=== PATIENT | female | born 1965 | race African-American/Black ===

== ENCOUNTER 2016-09-01 06:50 | Emergency (ER) | payer SELFPAY ==
[~2016-09-01] VITALS: Ht 170.2 cm; Wt 86.3 kg
[~2016-09-01 06:50] MED LIST: BENADRYL25 MG PO; BENADRYL50 MG PO; BENTYL10 MG PO; COLACE100 MG PO; DOCUSATE SODIU100 MG PO; DOXYCYCLINE HY100 M3 PO; EPINEPHRIN0.15 MG/0. IM; FAMOTIDINE20 MG PO; FIORICET 50-301 EACH PO; MACROBID100 MG PO; MEDROL DOSEPAK4 MG PO; NAPROXEN500 MG PO; NIGHT TIME COL1 EAC1 PO; NOHOMEMEDS; PERCOCET 5/31 TABLET PO; PREDNISONE10 MG PO; PREDNISONE20 MG PO; PREDNISONE5 MG PO; PROTONIX40 MG PO; TYLENOL EXTRA500 MG PO; ULTRAM50 MG PO; XANAX0.25 MG PO
[2016-09-01 07:32] LABS: HEMATOCRIT 28.8 % (36.0-46.0); MCH 25.3 PG (29.0-34.0); MCHC 31.9 G/DL (30.0-36.0); MCV 79.3 FL (83-99); MEAN PLAT.VOLUME 9.2 uM^3 (9.5-12.4); PLATELET COUNT 401 K/uL (156-360); RBC DIS.WIDTH-CV 15.6 % (11.8-14.6); RBC DIS.WIDTH-SD 43.9 % (39-53); RED BLOOD COUNT 3.63 M/uL (3.80-5.20); WHITE BLOOD COUNT 13.3 K/uL (4.1-10.2)
[2016-09-01 08:17] LABS: ANION GAP 11 MEQ/L (2-14); CHLORIDE 101 MEQ/L (99-109); POTASSIUM 3.5 MEQ/L (3.7-5.4); SAMPLE HEMOLYSIS CHECK 0; SAMPLE ICTERIC CHECK 0; SAMPLE LIPEMIA CHECK 0; SODIUM 133 MEQ/L (136-147); TOTAL BILIRUBIN 0.7 MG/DL (0.0-1.0)
[2016-09-01 08:20] LABS: INTERNAL CONTROL VALID? YES; MONOSPOT (MONONUCLEOSIS SEROL) NEGATIVE
[2016-09-01 08:23] LABS: ALKALINE PHOSPHATASE 115 IU/L (3-129); GFR ESTIMATE (CALCULATED) > 59 mL/min/; GLUCOSE 143 mg/dL (70-99); UREA NITROGEN (BUN) 9 mg/dL (9-23)
[2016-09-01 08:40] LABS: C-REACTIVE PROTEIN 189.1 MG/L (0-10)
[2016-09-01 09:38] LABS: ADD MIUA? YES; BILIRUBIN NEGATIVE; BLOOD MODERATE; COLOR YELLOW ((YELLOW)); GLUCOSE (STRIP) NEGATIVE; KETONES NEGATIVE; LEUKOCYTES NEGATIVE; NITRITE NEGATIVE; PROTEIN (STRIP) NEGATIVE; SPECIFIC GRAVITY 1.005 (1.000-1.030); UROBILINOGEN 0.2 MG/DL (0.2-1.0)
[2016-09-01 09:47] LABS: BACTERIA RARE /HPF; EPITHELIAL CELLS 1+ /HPF; MUCUS NONE SEEN /LPF; RED BLOOD CELLS 0-5 /HPF (0-5); WHITE BLOOD CELLS 0-5 /HPF (0-5)
[2016-09-01 09:57] LABS: ABS NEUTROPHIL COUNT 10.76; ANISOCYTOSIS OCC; EOSINOPHIL ABS CT 0.13; MICROCYTOSIS RARE; PLAT.SUFFICIENCY INCREASED; USER ID CCL
[2016-09-01] MEDS ORDERED: PREDNISONE10 M1 PO (10:09)
[2016-09-01 10:33] LABS: LYME DISEASE SEROLOGY SCREEN NEGATIVE (NEGATIVE)
[2016-09-01 10:41] VITALS: BP 96/55
[2016-09-01 10:51] LABS: DELETE MACHINE DIFF? YES
== END 2016-09-01 14:00 | disposition home or self-care (01) ==
LOC: EME 06:50
PROVIDERS: Nurse Practitioner Family
DX: R50.9 Fever, unspecified (principal); M25.50 Pain in unspecified joint; J02.9 Acute pharyngitis, unspecified
CPT/HCPCS: 71020; 80053; 81003; 85025; 85027; 85651; 86140; 86308; 86618; 99281; 99285; J1885; J2270; J7030

== ENCOUNTER 2016-09-06 04:23 | Inpatient (IN) | payer SELFPAY ==
[~2016-09-06] VITALS: Ht 170.2 cm; Wt 92.5 kg
[~2016-09-06 04:23] MED LIST changes: +PREDNISONE10 M1 PO
[2016-09-06 04:48] LABS: HEMATOCRIT 27.9 % (36.0-46.0); MCH 25.3 PG (29.0-34.0); MCHC 32.6 G/DL (30.0-36.0); MCV 77.7 FL (83-99); RBC DIS.WIDTH-CV 15.9 % (11.8-14.6); RBC DIS.WIDTH-SD 43.3 % (39-53); RED BLOOD COUNT 3.59 M/uL (3.80-5.20); WHITE BLOOD COUNT 16.2 K/uL (4.1-10.2)
[2016-09-06 04:51] LABS: MEAN PLAT.VOLUME 8.8 uM^3 (9.5-12.4)
[2016-09-06 04:52] LABS: PLATELET COUNT 533 K/uL (156-360)
[2016-09-06 04:59] LABS: CHLORIDE 102 mEq/L (99-109); POTASSIUM 3.9 mEq/L (3.7-5.4); SODIUM 134 mEq/L (136-147)
[2016-09-06 05:01] LABS: GLUCOSE 186 mg/dL (70-99)
[2016-09-06 05:02] LABS: ANION GAP 13 MEQ/L (2-14)
[2016-09-06 05:05] LABS: GFR ESTIMATE (CALCULATED) > 59 mL/min/
[2016-09-06 05:06] LABS: UREA NITROGEN (BUN) 15 mg/dL (9-23)
[2016-09-06 05:09] LABS: TROP-I INTERPRETATION NEGATIVE; TROPONIN-I 0.04 ng/mL (0.0-0.30)
[2016-09-06 05:15] LABS: TOTAL BILIRUBIN 0.5 mg/dL (0.0-1.0)
[2016-09-06 05:16] LABS: ALKALINE PHOSPHATASE 202 IU/L (3-129)
[2016-09-06 05:19] LABS: DIRECT BILIRUBIN 0.3 mg/dL (0.0-0.3)
[2016-09-06 05:20] LABS: LIPASE 12 U/L (1.0-51.0)
[2016-09-06 05:57] LABS: INFLUENZA A VIRAL ANTIGEN NEGATIVE; INFLUENZA B VIRAL ANTIGEN NEGATIVE
[2016-09-06] MEDS ORDERED: PREDNISONE10 M1 PO (07:25)
[2016-09-06 08:09] LABS: ADD MIUA? YES; BILIRUBIN NEGATIVE; BLOOD SMALL; COLOR YELLOW ((YELLOW)); GLUCOSE (STRIP) NEGATIVE; KETONES NEGATIVE; LEUKOCYTES NEGATIVE; NITRITE NEGATIVE; PROTEIN (STRIP) 30; SPECIFIC GRAVITY 1.012 (1.000-1.030)
[2016-09-06 08:21] LABS: BACTERIA NONE SEEN /HPF; EPITHELIAL CELLS 3+ /HPF; MUCUS TRACE /LPF; UCUL ADDED? NO; WHITE BLOOD CELLS 0-5 /HPF (0-5)
[2016-09-06 10:13] VITALS: BP 175/97
[2016-09-06 13:43] LABS: TROP-I INTERPRETATION NEGATIVE; TROPONIN-I 0.21 ng/mL (0.0-0.30)
[2016-09-06 16:38] VITALS: BP 148/87
[2016-09-06 20:00] VITALS: BP 106/58
[2016-09-06 21:28] LABS: TROP-I INTERPRETATION NEGATIVE; TROPONIN-I 0.14 ng/mL (0.0-0.30)
[2016-09-07] VITALS: BP 104/62
[2016-09-07 04:41] VITALS: BP 121/67
[2016-09-07 06:22] LABS: HEMATOCRIT 24.3 % (36.0-46.0); MCH 25.6 PG (29.0-34.0); MCHC 32.5 G/DL (30.0-36.0); MCV 78.6 FL (83-99); MEAN PLAT.VOLUME 9.4 uM^3 (9.5-12.4); PLATELET COUNT 381 K/uL (156-360); RBC DIS.WIDTH-CV 16.5 % (11.8-14.6); RBC DIS.WIDTH-SD 47.8 % (39-53); RED BLOOD COUNT 3.09 M/uL (3.80-5.20); WHITE BLOOD COUNT 15.4 K/uL (4.1-10.2)
[2016-09-07 06:52] LABS: ALKALINE PHOSPHATASE 122 IU/L (3-129); ANION GAP 9 MEQ/L (2-14); CHLORIDE 110 MEQ/L (99-109); GFR ESTIMATE (CALCULATED) > 59 mL/min/; GLUCOSE 164 mg/dL (70-99); POTASSIUM 4.4 MEQ/L (3.7-5.4); SAMPLE HEMOLYSIS CHECK 0; SAMPLE ICTERIC CHECK 0; SAMPLE LIPEMIA CHECK 0; SODIUM 138 MEQ/L (136-147); TOTAL BILIRUBIN 0.8 MG/DL (0.0-1.0); UREA NITROGEN (BUN) 12 mg/dL (9-23)
[2016-09-07 07:27] VITALS: BP 102/62
[2016-09-07 12:27] VITALS: BP 120/76
[2016-09-07 12:41] LABS: HEMATOCRIT 24.5 % (36.0-46.0); MCV 77.5 FL (83-99)
[2016-09-07 13:15] LABS: TROP-I INTERPRETATION NEGATIVE; TROPONIN-I 0.03 ng/mL (0.0-0.30)
[2016-09-07 16:02] VITALS: BP 119/68
[2016-09-07 18:38] LABS: ABSOLUTE RETICULOCYTE CT. 0.03 M/uL (0.02-0.08); IMM.RETIC FRACTION 4.1 % (3-19); RETIC HGB EQUIVALENT 18.8 (28-36)
[2016-09-07 19:04] LABS: IRON 43 MCG/DL (35-150)
[2016-09-07 19:17] LABS: LACTATE DEHYDROGENASE 400 IU/L (20-246)
[2016-09-07 19:22] LABS: FERRITIN > 1500 NG/ML (10-291)
[2016-09-07 20:00] VITALS: BP 135/76
[2016-09-08] VITALS (10 sets, daily range): BP systolic 117–138; BP diastolic 64–87
[2016-09-08 07:19] LABS: HEMATOCRIT 23.9 % (36.0-46.0); MCH 25.4 PG (29.0-34.0); MCHC 33.1 G/DL (30.0-36.0); MCV 76.8 FL (83-99); MEAN PLAT.VOLUME 9.5 uM^3 (9.5-12.4); PLATELET COUNT 448 K/uL (156-360); RBC DIS.WIDTH-CV 16.5 % (11.8-14.6); RBC DIS.WIDTH-SD 46.4 % (39-53); RED BLOOD COUNT 3.11 M/uL (3.80-5.20); WHITE BLOOD COUNT 19.5 K/uL (4.1-10.2)
[2016-09-08 07:48] LABS: ANION GAP 9 MEQ/L (2-14); CHLORIDE 106 MEQ/L (99-109); GFR ESTIMATE (CALCULATED) > 59 mL/min/; GLUCOSE 181 mg/dL (70-99); POTASSIUM 4.7 MEQ/L (3.7-5.4); SAMPLE HEMOLYSIS CHECK 0; SAMPLE ICTERIC CHECK 0; SAMPLE LIPEMIA CHECK 0; SODIUM 136 MEQ/L (136-147); UREA NITROGEN (BUN) 14 mg/dL (9-23)
[2016-09-08 14:47] LABS: INTERNAL CONTROL VALID? YES
[2016-09-08 15:13] LABS: C-REACTIVE PROTEIN 223.8 MG/L (0-10)
[2016-09-09 04:18] VITALS: BP 132/83
[2016-09-09 05:45] LABS: HEMATOCRIT 28.3 % (36.0-46.0); MCH 25.1 PG (29.0-34.0); MCHC 32.9 G/DL (30.0-36.0); MCV 76.5 FL (83-99); MEAN PLAT.VOLUME 9.4 uM^3 (9.5-12.4); PLATELET COUNT 485 K/uL (156-360); RBC DIS.WIDTH-CV 16.2 % (11.8-14.6); RBC DIS.WIDTH-SD 45.5 % (39-53); WHITE BLOOD COUNT 20.4 K/uL (4.1-10.2)
[2016-09-09 09:00] VITALS: BP 131/85
[2016-09-09] MEDS ORDERED: DEXAMETHASONE2 MG PO (11:15)
[2016-09-09] MEDS ORDERED: Colchicine,Colcrys PO (11:18)
[2016-09-09] MEDS ORDERED: PANTOPRAZOLE SO40 MG PO (11:18)
[2016-09-09] MEDS ORDERED: FOLIC ACID1 MG PO (11:18)
[2016-09-09 11:24] VITALS: BP 120/84
[2016-09-09] MEDS ORDERED: PERCOCET 5/31 TABLET PO (11:26)
[2016-09-10 19:03] LABS: HGBE Hematocrit 26.1 % (35.0-45.0); HGBE Hemoglobin 7.9 g/dL (11.7-15.5); HGBE MCH 24.7 pg (27.0-33.0); HGBE MCV 81.6 FL (80.0-100.0); HGBE RDW 18.6 % (11.0-15.0)
== END 2016-09-09 14:59 | disposition home or self-care (01) | DRG 545 ==
LOC: EME 04:23 → 5WEST 08:22 → EDOF 08:22 → 5WEST 09:51
PROVIDERS: Anesthesiology; Emergency Medicine; Internal Medicine; Physician Assistant Medical; Specialist
PROC: 30233N1 Transfusion of Nonautologous Red Blood Cells into Peripheral Vein, Percutaneous Approach (ICD-10-PCS; principal; 2016-09-08)
DX: M06.1 Adult-onset Still's disease (principal); R65.11 Systemic inflammatory response syndrome (SIRS) of non-infectious origin with acute organ dysfunction; I31.9 Disease of pericardium, unspecified; R07.89 Other chest pain; D64.9 Anemia, unspecified; R42 Dizziness and giddiness; R50.9 Fever, unspecified; R11.0 Nausea; R94.31 Abnormal electrocardiogram [ECG] [EKG]; D72.829 Elevated white blood cell count, unspecified; D47.3 Essential (hemorrhagic) thrombocythemia; R74.8 Abnormal levels of other serum enzymes; G89.29 Other chronic pain; M25.50 Pain in unspecified joint; E87.1 Hypo-osmolality and hyponatremia; I27.2 Other secondary pulmonary hypertension; K29.60 Other gastritis without bleeding; T38.0X5A Adverse effect of glucocorticoids and synthetic analogues, initial encounter
CPT/HCPCS: 71020; 71120; 71250; 76705; 80048; 80053; 80076; 81003; 81256 90; 82272; 82607; 82728; 82746; 83010 90; 83021 90; 83540; 83605; 83615; 83690; 84466; 84484; 85014; 85018; 85027; 85045; 86140; 86812 90; 86850; 86900; 86901; 86920; 87040; 87502; 87651 90; 93005; 93306; 99281; 99285; C9113; G0378; J1170; J1650; J1885; J1956; J2270; J2543; J2920; J2930; J3370; J7030; J7050; P9016

== ENCOUNTER 2016-09-10 21:43 | Inpatient (IN) | payer SELFPAY ==
[~2016-09-10] VITALS: Ht 170.2 cm; Wt 89.9 kg
[~2016-09-10 21:43] MED LIST changes: +Colchicine,Colcrys PO; +DEXAMETHASONE2 MG PO; +FOLIC ACID1 MG PO; +PANTOPRAZOLE SO40 MG PO
[2016-09-10 22:10] LABS: HEMATOCRIT 28.5 % (36.0-46.0); MCH 25.7 PG (29.0-34.0); MCHC 33.7 G/DL (30.0-36.0); MCV 76.2 FL (83-99); MEAN PLAT.VOLUME 8.9 uM^3 (9.5-12.4); PLATELET COUNT 475 K/uL (156-360); RBC DIS.WIDTH-CV 16.4 % (11.8-14.6); RBC DIS.WIDTH-SD 43.7 % (39-53); RED BLOOD COUNT 3.74 M/uL (3.80-5.20); WHITE BLOOD COUNT 21.9 K/uL (4.1-10.2)
[2016-09-10 22:20] LABS: CHLORIDE 102 mEq/L (99-109); POTASSIUM 3.6 mEq/L (3.7-5.4); SODIUM 134 mEq/L (136-147)
[2016-09-10 22:21] LABS: GLUCOSE 151 mg/dL (70-99)
[2016-09-10 22:23] LABS: ANION GAP 11 MEQ/L (2-14)
[2016-09-10 22:25] LABS: GFR ESTIMATE (CALCULATED) > 59 mL/min/
[2016-09-10 22:26] LABS: UREA NITROGEN (BUN) 14 mg/dL (9-23)
[2016-09-10 22:30] LABS: TROP-I INTERPRETATION NEGATIVE; TROPONIN-I < 0.01 ng/mL (0.0-0.30)
[2016-09-10 22:33] LABS: QUANTITATIVE HCG < 4.0 MIU/ML
[2016-09-10 22:41] LABS: D-DIMER ELISA > 4.00 mg/L FEU (< 0.57)
[2016-09-10 23:55] LABS: ADD MIUA? YES; BILIRUBIN NEGATIVE; BLOOD SMALL; COLOR AMBER ((YELLOW)); GLUCOSE (STRIP) NEGATIVE; KETONES NEGATIVE; LEUKOCYTES NEGATIVE; NITRITE NEGATIVE; PROTEIN (STRIP) 30; SPECIFIC GRAVITY 1.029 (1.000-1.030)
[2016-09-11 00:02] LABS: BACTERIA RARE /HPF; EPITHELIAL CELLS 2+ /HPF; MUCUS 4+ /LPF; UCUL ADDED? NO
[2016-09-11] MEDS ORDERED: TREXALL10 MG PO (01:45)
[2016-09-11] MEDS ORDERED: COLCRYS0.6 MG PO (01:46)
[2016-09-11 05:13] VITALS: BP 138/83
[2016-09-11 05:32] LABS: INFLUENZA A VIRAL ANTIGEN NEGATIVE; INFLUENZA B VIRAL ANTIGEN NEGATIVE
[2016-09-11 06:47] LABS: TROP-I INTERPRETATION NEGATIVE; TROPONIN-I < 0.01 ng/mL (0.0-0.30)
[2016-09-11 07:50] VITALS: BP 168/93
[2016-09-11 09:23] LABS: MCH 24.3 PG (29.0-34.0); MCHC 31.9 G/DL (30.0-36.0); MCV 76.2 FL (83-99); MEAN PLAT.VOLUME 9.5 uM^3 (9.5-12.4); PLATELET COUNT 455 K/uL (156-360); RBC DIS.WIDTH-CV 16.6 % (11.8-14.6); RBC DIS.WIDTH-SD 46.5 % (39-53); RED BLOOD COUNT 4.07 M/uL (3.80-5.20)
[2016-09-11 09:30] LABS: ANION GAP 9 MEQ/L (2-14); CHLORIDE 98 MEQ/L (99-109); GFR ESTIMATE (CALCULATED) > 59 mL/min/; GLUCOSE 151 mg/dL (70-99); POTASSIUM 3.6 MEQ/L (3.7-5.4); SAMPLE HEMOLYSIS CHECK 0; SAMPLE ICTERIC CHECK 0; SAMPLE LIPEMIA CHECK 0; SODIUM 131 MEQ/L (136-147); UREA NITROGEN (BUN) 11 mg/dL (9-23)
[2016-09-11 12:23] LABS: TROP-I INTERPRETATION NEGATIVE; TROPONIN-I 0.02 ng/mL (0.0-0.30)
[2016-09-11 12:30] VITALS: BP 173/106
[2016-09-11 15:02] LABS: BASE EXCESS 2.7 mEq/L (-3 to +3); BICARBONATE 25.7 mEq/L (22-26); CARBOXY HGB 2.3 % (0-5); METHEMOGLOBIN 1.8 % (0-1.5); PCO2 33 mm Hg (35-45); PO2 56 mm Hg (80-100)
[2016-09-11 15:03] LABS: COMMENTS - BLOOD GASES A+C+; DEVICE RA; SITE RR; TOTAL RESP RATE 20 resp/min
[2016-09-11 15:55] VITALS: BP 126/68
[2016-09-11 19:45] VITALS: BP 106/67
[2016-09-11 23:20] VITALS: BP 106/58
[2016-09-12 03:25] VITALS: BP 94/51
[2016-09-12 06:20] LABS: HEMATOCRIT 29.7 % (36.0-46.0); MCH 25.9 PG (29.0-34.0); MCV 76.2 FL (83-99); MEAN PLAT.VOLUME 9.8 uM^3 (9.5-12.4); RBC DIS.WIDTH-CV 16.5 % (11.8-14.6); RBC DIS.WIDTH-SD 45.6 % (39-53); WHITE BLOOD COUNT 24.6 K/uL (4.1-10.2)
[2016-09-12 06:46] LABS: ANION GAP 10 MEQ/L (2-14); CHLORIDE 96 MEQ/L (99-109); GFR ESTIMATE (CALCULATED) > 59 mL/min/; GLUCOSE 132 mg/dL (70-99); POTASSIUM 4.6 MEQ/L (3.7-5.4); SAMPLE HEMOLYSIS CHECK 0; SAMPLE ICTERIC CHECK 0; SAMPLE LIPEMIA CHECK 0; SODIUM 132 MEQ/L (136-147); UREA NITROGEN (BUN) 21 mg/dL (9-23)
[2016-09-12 06:50] LABS: EOSINOPHIL (%) 0 % (0-5); IMMATURE GRANULOCYTE (%) 1.2 % (0.0-0.7); IMMATURE GRANULOCYTE COUNT 0.3 K/uL; LYMPHOCYTE COUNT 1.4 K/uL (1.0-2.8); MONOCYTE (%) 2.8 % (3-12); MONOCYTE COUNT 0.7 K/uL (0-0.8); NEUTROPHIL (%) 90.2 % (45-76); NEUTROPHIL COUNT 22.2 K/uL (1.8-6.4)
[2016-09-12 07:59] LABS: ABS NEUTROPHIL COUNT 22.63; BAND NEUTROPHILS 4.5 % (0-8.0); LYMPHOCYTES 6.5 % (15.0-45.0); MACROCYTES OCC; PLAT.SUFFICIENCY INCREASED; PLATELET CLUMPS PRESENT; POLYCHROMASIA RARE; SEG.NEUTROPHILS 87.5 % (46.0-76.0)
[2016-09-12 08:03] VITALS: BP 89/54
[2016-09-12 12:00] VITALS: BP 104/62
[2016-09-12 15:48] VITALS: BP 112/63
[2016-09-12 20:00] VITALS: BP 92/54
[2016-09-13] VITALS: BP 100/53
[2016-09-13 04:00] VITALS: BP 92/52
[2016-09-13 08:03] VITALS: BP 98/61
[2016-09-13 10:04] LABS: INTERNAL CONTROL VALID? YES
[2016-09-13] MEDS ORDERED: HYDROMORPHONE HC4 MG PO (10:12)
[2016-09-13] MEDS ORDERED: DEXAMETHASONE2 MG PO (10:12)
[2016-09-13] MEDS ORDERED: ASPIRIN EC325 MG PO (10:12)
== END 2016-09-13 13:43 | disposition home or self-care (01) | DRG 546 ==
LOC: EME → EDBD 21:43 → EME 21:43 → EDOF 09-11 03:47 → 4SOUTH 09-11 03:47
PROVIDERS: Emergency Medicine; Hospitalist; Internal Medicine Pulmonary Disease
DX: M06.1 Adult-onset Still's disease (principal); R65.10 Systemic inflammatory response syndrome (SIRS) of non-infectious origin without acute organ dysfunction; I31.9 Disease of pericardium, unspecified; R82.71 Bacteriuria; D64.9 Anemia, unspecified; I27.2 Other secondary pulmonary hypertension; Z79.52 Long term (current) use of systemic steroids
CPT/HCPCS: 36600; 71020; 71275; 80048; 81003; 82803; 83605; 84484; 84702; 85025; 85027; 85379; 87040; 87070; 87205; 87449; 87502; 93005; 99281; 99285; J1170; J1644; J1885; J2270; J2405; J3010; J7030; J7512; J8540

== ENCOUNTER 2016-09-29 15:43 | Emergency (ER) | payer SELFPAY ==
[~2016-09-29] VITALS: Ht 170.2 cm; Wt 87.7 kg
[~2016-09-29 15:43] MED LIST changes: +ASPIRIN EC325 MG PO; +COLCRYS0.6 MG PO; +HYDROMORPHONE HC4 MG PO; +TREXALL10 MG PO
[2016-09-29 16:38] LABS: CHLORIDE 94 mEq/L (99-109); POTASSIUM 4.4 mEq/L (3.7-5.4); SODIUM 127 mEq/L (136-147)
[2016-09-29 16:41] LABS: GLUCOSE 101 mg/dL (70-99)
[2016-09-29 16:42] LABS: ANION GAP 13 MEQ/L (2-14); TOTAL BILIRUBIN 0.5 mg/dL (0.0-1.0)
[2016-09-29 16:44] LABS: ALKALINE PHOSPHATASE 229 IU/L (3-129); GFR ESTIMATE (CALCULATED) 48 mL/min/
[2016-09-29 16:45] LABS: HEMATOCRIT 34.2 % (36.0-46.0); MCH 23.8 PG (29.0-34.0); MCHC 31.9 G/DL (30.0-36.0); MCV 74.7 FL (83-99); MEAN PLAT.VOLUME 10.3 uM^3 (9.5-12.4); PLATELET COUNT 412 K/uL (156-360); RBC DIS.WIDTH-CV 17.4 % (11.8-14.6); RBC DIS.WIDTH-SD 46.5 % (39-53); RED BLOOD COUNT 4.58 M/uL (3.80-5.20); UREA NITROGEN (BUN) 55 mg/dL (9-23); WHITE BLOOD COUNT 13.6 K/uL (4.1-10.2)
[2016-09-29 16:46] LABS: DIRECT BILIRUBIN 0.3 mg/dL (0.0-0.3)
[2016-09-29 16:48] LABS: LIPASE 11 U/L (1.0-51.0)
[2016-09-29 16:53] LABS: QUANTITATIVE HCG < 4.0 MIU/ML
[2016-09-29 19:48] LABS: ADD MIUA? YES; BILIRUBIN NEGATIVE; BLOOD NEGATIVE; COLOR YELLOW ((YELLOW)); GLUCOSE (STRIP) NEGATIVE; KETONES NEGATIVE; LEUKOCYTES NEGATIVE; NITRITE NEGATIVE; PROTEIN (STRIP) 30; SPECIFIC GRAVITY 1.032 (1.000-1.030); UROBILINOGEN 0.2 MG/DL (0.2-1.0)
[2016-09-29 20:08] LABS: BACTERIA RARE /HPF; EPITHELIAL CELLS 1+ /HPF; MUCUS TRACE /LPF; UCUL ADDED? NO; UNCLASSIFIED CRYSTALS 1+ /HPF
[2016-09-29] MEDS ORDERED: ZOFRAN ODT4 MG PO (20:39)
[2016-09-29 21:08] VITALS: BP 113/81
== END 2016-09-29 21:09 | disposition home or self-care (01) ==
LOC: EME → EDBD 15:43 → EME 15:43
PROVIDERS: Emergency Medicine
DX: R11.10 Vomiting, unspecified (principal); R19.7 Diarrhea, unspecified; D72.829 Elevated white blood cell count, unspecified; D64.9 Anemia, unspecified; E87.1 Hypo-osmolality and hyponatremia; Z86.718 Personal history of other venous thrombosis and embolism
CPT/HCPCS: 74177; 80048; 80076; 81003; 83605; 83690; 84702; 85027; 87177; 87493; 87506; 93005; 99281; 99285; J1885; J2270; J2405; J7120

== ENCOUNTER 2016-12-03 20:01 | Inpatient (IN) | payer OTHER ==
[~2016-12-03] VITALS: Ht 297.2 cm; Wt 75.7 kg
[~2016-12-03 20:01] MED LIST changes: +ZOFRAN ODT4 MG PO
[2016-12-03 20:44] LABS: HEMATOCRIT 23.6 % (36.0-46.0); MCH 25.1 PG (29.0-34.0); MCHC 31.8 G/DL (30.0-36.0); MCV 78.9 FL (83-99); MEAN PLAT.VOLUME 9.4 uM^3 (9.5-12.4); NRBC (%) 0.2 /100 WBC (0-0); PLATELET COUNT 452 K/uL (156-360); RBC DIS.WIDTH-CV 20.1 % (11.8-14.6); RBC DIS.WIDTH-SD 56.9 % (39-53); RED BLOOD COUNT 2.99 M/uL (3.80-5.20); WHITE BLOOD COUNT 15.6 K/uL (4.1-10.2)
[2016-12-03 20:47] LABS: CHLORIDE 101 mEq/L (99-109); POTASSIUM 4.6 mEq/L (3.7-5.4); SODIUM 133 mEq/L (136-147)
[2016-12-03 20:49] LABS: GLUCOSE 115 mg/dL (70-99)
[2016-12-03 20:50] LABS: ANION GAP 11 MEQ/L (2-14)
[2016-12-03 20:52] LABS: GFR ESTIMATE (CALCULATED) > 59 mL/min/
[2016-12-03 20:53] LABS: UREA NITROGEN (BUN) 8 mg/dL (9-23)
[2016-12-03 20:58] LABS: TROP-I INTERPRETATION NEGATIVE; TROPONIN-I < 0.01 ng/mL (0.0-0.30)
[2016-12-03 20:59] LABS: INFLUENZA A VIRAL ANTIGEN NEGATIVE; INFLUENZA B VIRAL ANTIGEN NEGATIVE
[2016-12-03] MEDS ORDERED: ASPIRIN325 MG PO (21:58)
[2016-12-04] VITALS (16 sets, daily range): BP systolic 90–172; BP diastolic 7–64
[2016-12-04 01:39] LABS: HEMATOCRIT 20.5 % (36.0-46.0); MCV 79.8 FL (83-99)
[2016-12-04 01:44] LABS: TOTAL BILIRUBIN 0.3 mg/dL (0.0-1.0)
[2016-12-04 01:45] LABS: ALKALINE PHOSPHATASE 132 IU/L (3-129)
[2016-12-04 01:47] LABS: DIRECT BILIRUBIN 0.2 mg/dL (0.0-0.3)
[2016-12-04 02:41] LABS: LACTATE DEHYDROGENASE 430 IU/L (20-246)
[2016-12-04 03:11] LABS: C-REACTIVE PROTEIN 155.2 MG/L (0-10)
[2016-12-04 22:25] LABS: HEMATOCRIT 26.5 % (36.0-46.0); MCHC 32.8 G/DL (30.0-36.0); MCV 79.3 FL (83-99); NRBC (%) 0.1 /100 WBC (0-0); RBC DIS.WIDTH-CV 18.2 % (11.8-14.6); RBC DIS.WIDTH-SD 51.7 % (39-53); RED BLOOD COUNT 3.34 M/uL (3.80-5.20)
[2016-12-04 22:26] LABS: CHLORIDE 106 mEq/L (99-109); POTASSIUM 3.9 mEq/L (3.7-5.4); SODIUM 133 mEq/L (136-147)
[2016-12-04 22:29] LABS: GLUCOSE 84 mg/dL (70-99)
[2016-12-04 22:30] LABS: ANION GAP 9 MEQ/L (2-14)
[2016-12-04 22:32] LABS: ALKALINE PHOSPHATASE 122 IU/L (3-129); GFR ESTIMATE (CALCULATED) > 59 mL/min/; TOTAL BILIRUBIN 0.7 mg/dL (0.0-1.0)
[2016-12-04 22:33] LABS: UREA NITROGEN (BUN) 9 mg/dL (9-23)
[2016-12-04 22:35] LABS: CREATINE KINASE 21 IU/L (1-294); TOTAL CK 21 IU/L (1-294)
[2016-12-04 22:39] LABS: TROP-I INTERPRETATION NEGATIVE; TROPONIN-I < 0.01 ng/mL (0.0-0.30)
[2016-12-04 22:41] LABS: CK-MB < 0.4 ng/mL (0.0-4.9)
[2016-12-04 23:10] LABS: ATYPICAL LYMPHOCYTE 0.9 %; BAND NEUTROPHILS 13.9 % (0-8.0); EOSINOPHIL ABS CT 0.5; EOSINOPHILS 2.6 % (0-5.0); INSTRUMENT ABS NEUTROPHIL CT 18.1 K/uL; MEAN PLAT.VOLUME 9.3 uM^3 (9.5-12.4); NUCLEATED RBC'S 0.9; PLATELET COUNT 290 K/uL (156-360); SEG.NEUTROPHILS 80.9 % (46.0-76.0); WHITE BLOOD COUNT 21.1 K/uL (4.1-10.2)
[2016-12-05 04:00] VITALS: BP 110/69
[2016-12-05 07:41] LABS: INTERNAL CONTROL VALID? YES
[2016-12-05 09:00] VITALS: BP 110/57
[2016-12-05 12:00] VITALS: BP 114/68
[2016-12-05 12:47] LABS: HEMATOCRIT 26.6 % (36.0-46.0); MCH 26.2 PG (29.0-34.0); MCHC 32.3 G/DL (30.0-36.0); MCV 81.1 FL (83-99); MEAN PLAT.VOLUME 9.8 uM^3 (9.5-12.4); PLATELET COUNT 309 K/uL (156-360); RBC DIS.WIDTH-CV 18.6 % (11.8-14.6); RBC DIS.WIDTH-SD 54.7 % (39-53); RED BLOOD COUNT 3.28 M/uL (3.80-5.20); WHITE BLOOD COUNT 17.8 K/uL (4.1-10.2)
[2016-12-05 13:13] LABS: EOSINOPHIL COUNT 1.2 K/uL (0-0.3); IMMATURE GRANULOCYTE (%) 0.6 % (0.0-0.7); IMMATURE GRANULOCYTE COUNT 0.1 K/uL; INSTRUMENT ABS NEUTROPHIL CT 14.9 K/uL; LYMPHOCYTE COUNT 1.2 K/uL (1.0-2.8); MONOCYTE (%) 1.5 % (3-12); MONOCYTE COUNT 0.3 K/uL (0-0.8); NEUTROPHIL (%) 83.9 % (45-76); NEUTROPHIL COUNT 14.9 K/uL (1.8-6.4)
[2016-12-05 13:16] LABS: ANION GAP 9 MEQ/L (2-14); CHLORIDE 102 MEQ/L (99-109); GFR ESTIMATE (CALCULATED) > 59 mL/min/; GLUCOSE 84 mg/dL (70-99); POTASSIUM 4.1 MEQ/L (3.7-5.4); SAMPLE HEMOLYSIS CHECK 0; SAMPLE ICTERIC CHECK 0; SAMPLE LIPEMIA CHECK 0; SODIUM 133 MEQ/L (136-147); UREA NITROGEN (BUN) 9 mg/dL (9-23)
[2016-12-05 16:00] VITALS: BP 114/68
[2016-12-05 17:13] LABS: HEMATOCRIT 26.2 % (36.0-46.0); MCV 80.1 FL (83-99)
[2016-12-05 17:50] LABS: IRON 15 MCG/DL (35-150)
[2016-12-05 18:10] LABS: FERRITIN > 1500 NG/ML (10-291)
[2016-12-05 19:44] VITALS: BP 123/73
[2016-12-06] VITALS (9 sets, daily range): BP systolic 115–142; BP diastolic 67–92
[2016-12-06 06:10] LABS: HEMATOCRIT 23.3 % (36.0-46.0); IMM.RETIC FRACTION 20.6 % (3-19); MCH 26.4 PG (29.0-34.0); MCHC 33.5 G/DL (30.0-36.0); MEAN PLAT.VOLUME 9.6 uM^3 (9.5-12.4); PLATELET COUNT 308 K/uL (156-360); RBC DIS.WIDTH-CV 18.5 % (11.8-14.6); RBC DIS.WIDTH-SD 52.9 % (39-53); RED BLOOD COUNT 2.95 M/uL (3.80-5.20); RETIC HGB EQUIVALENT 26.1 (28-36); RETICULOCYTE COUNT 1.7 % (0.5-1.8); WHITE BLOOD COUNT 13.1 K/uL (4.1-10.2)
[2016-12-06 06:44] LABS: ANION GAP 7 MEQ/L (2-14); CHLORIDE 105 MEQ/L (99-109); GFR ESTIMATE (CALCULATED) > 59 mL/min/; GLUCOSE 105 mg/dL (70-99); IRON 27 MCG/DL (35-150); MAGNESIUM 1.9 mg/dl (1.3-2.7); POTASSIUM 3.9 MEQ/L (3.7-5.4); SAMPLE HEMOLYSIS CHECK 0; SAMPLE ICTERIC CHECK 0; SAMPLE LIPEMIA CHECK 0; SODIUM 134 MEQ/L (136-147); UREA NITROGEN (BUN) 10 mg/dL (9-23)
[2016-12-06 10:54] LABS: ANTI-NUCLEAR AB SCRN/RFLX(ANA) REACTIVE (NONREACTIVE)
[2016-12-06 10:59] LABS: CENTROMERE ANTIBODY 12 U/mL (0-99); HISTONE ANTIBODY 17 U/mL (0-99); JO-1 ANTIBODY 9 U/mL (0-99); SCL-70 (SCLERODERMA) ANTIBODY 174 U/mL (0-99); SM (SMITH) ANTIBODY 11 U/mL (0-99); SS-A (SJOGREN'S) ANTIBODY 3 U/mL (0-99); SS-B (SJOGREN'S) ANTIBODY 13 U/mL (0-99)
[2016-12-06 13:55] LABS: POC NON-PRINT COM 1 ND
[2016-12-07] VITALS (7 sets, daily range): BP systolic 133–148; BP diastolic 78–95
[2016-12-07 07:31] LABS: HEMATOCRIT 27.4 % (36.0-46.0); MCH 27.1 PG (29.0-34.0); MCHC 33.6 G/DL (30.0-36.0); MCV 80.6 FL (83-99); MEAN PLAT.VOLUME 9.7 uM^3 (9.5-12.4); NRBC (%) 0.1 /100 WBC (0-0); PLATELET COUNT 346 K/uL (156-360); RBC DIS.WIDTH-CV 18.1 % (11.8-14.6); RBC DIS.WIDTH-SD 52.5 % (39-53); WHITE BLOOD COUNT 14.9 K/uL (4.1-10.2)
[2016-12-07 07:58] LABS: ANION GAP 11 MEQ/L (2-14); CHLORIDE 104 MEQ/L (99-109); GFR ESTIMATE (CALCULATED) > 59 mL/min/; GLUCOSE 79 mg/dL (70-99); MAGNESIUM 1.8 mg/dl (1.3-2.7); POTASSIUM 3.7 MEQ/L (3.7-5.4); SAMPLE HEMOLYSIS CHECK 0; SAMPLE ICTERIC CHECK 0; SAMPLE LIPEMIA CHECK 0; SODIUM 136 MEQ/L (136-147); UREA NITROGEN (BUN) 10 mg/dL (9-23)
[2016-12-07] MEDS ORDERED: Tears Naturale II,Ar BOTH EYES (12:00)
[2016-12-07 18:42] LABS: METH RESISTANT S AUREUS PCR NEGATIVE (NEGATIVE)
[2016-12-07 18:51] LABS: PROBE CHECK PASS; SPECIMEN PROCESSING CONTROL PASS
[2016-12-08 04:42] VITALS: BP 135/76
[2016-12-08 08:13] LABS: HEMATOCRIT 29.7 % (36.0-46.0); MCH 26.3 PG (29.0-34.0); MCHC 32.7 G/DL (30.0-36.0); MCV 80.5 FL (83-99); MEAN PLAT.VOLUME 9.3 uM^3 (9.5-12.4); NRBC (%) 0.2 /100 WBC (0-0); PLATELET COUNT 373 K/uL (156-360); RBC DIS.WIDTH-CV 18.4 % (11.8-14.6); RBC DIS.WIDTH-SD 54.1 % (39-53); RED BLOOD COUNT 3.69 M/uL (3.80-5.20); WHITE BLOOD COUNT 12.6 K/uL (4.1-10.2)
[2016-12-08 08:36] LABS: ALKALINE PHOSPHATASE 103 IU/L (3-129); ANION GAP 10 MEQ/L (2-14); CHLORIDE 103 MEQ/L (99-109); GFR ESTIMATE (CALCULATED) > 59 mL/min/; GLUCOSE 86 mg/dL (70-99); POTASSIUM 4.4 MEQ/L (3.7-5.4); SAMPLE HEMOLYSIS CHECK 0; SAMPLE ICTERIC CHECK 0; SAMPLE LIPEMIA CHECK 0; SODIUM 133 MEQ/L (136-147); TOTAL BILIRUBIN 0.5 MG/DL (0.0-1.0); UREA NITROGEN (BUN) 12 mg/dL (9-23)
[2016-12-08 08:46] LABS: EOSINOPHIL (%) 0.1 % (0-5); IMMATURE GRANULOCYTE COUNT 0.3 K/uL; INSTRUMENT ABS NEUTROPHIL CT 9.8 K/uL; LYMPHOCYTE COUNT 1.8 K/uL (1.0-2.8); MONOCYTE (%) 6.2 % (3-12); MONOCYTE COUNT 0.8 K/uL (0-0.8); NEUTROPHIL (%) 77.7 % (45-76); NEUTROPHIL COUNT 9.8 K/uL (1.8-6.4)
[2016-12-08 09:16] VITALS: BP 137/78
[2016-12-08 11:10] VITALS: BP 158/97
[2016-12-08 15:02] VITALS: BP 136/85
[2016-12-08 19:26] VITALS: BP 122/81
[2016-12-08 21:09] LABS: ADD MIUA? YES; BILIRUBIN NEGATIVE; BLOOD NEGATIVE; COLOR YELLOW ((YELLOW)); GLUCOSE (STRIP) NEGATIVE; KETONES 5; LEUKOCYTES NEGATIVE; NITRITE NEGATIVE; PROTEIN (STRIP) NEGATIVE; SPECIFIC GRAVITY 1.013 (1.000-1.030); UROBILINOGEN 0.2 MG/DL (0.2-1.0)
[2016-12-08 21:14] LABS: BACTERIA RARE /HPF; EPITHELIAL CELLS 1+ /HPF; MUCUS TRACE /LPF; UCUL ADDED? NO; WHITE BLOOD CELLS 0-5 /HPF (0-5)
[2016-12-08 23:39] VITALS: BP 118/62
[2016-12-09 06:29] LABS: EOSINOPHIL (%) 0.4 % (0-5); EOSINOPHIL COUNT 0.1 K/uL (0-0.3); HEMATOCRIT 31.8 % (36.0-46.0); IMMATURE GRANULOCYTE (%) 1.5 % (0.0-0.7); IMMATURE GRANULOCYTE COUNT 0.2 K/uL; INSTRUMENT ABS NEUTROPHIL CT 13.4 K/uL; MCH 27.4 PG (29.0-34.0); MCV 80.7 FL (83-99); MEAN PLAT.VOLUME 9.5 uM^3 (9.5-12.4); MONOCYTE (%) 3.6 % (3-12); MONOCYTE COUNT 0.6 K/uL (0-0.8); NEUTROPHIL (%) 81.9 % (45-76); NEUTROPHIL COUNT 13.4 K/uL (1.8-6.4); NRBC (%) 0.2 /100 WBC (0-0); PLATELET COUNT 478 K/uL (156-360); RBC DIS.WIDTH-CV 18.5 % (11.8-14.6); RBC DIS.WIDTH-SD 53.4 % (39-53); RED BLOOD COUNT 3.94 M/uL (3.80-5.20); WHITE BLOOD COUNT 16.3 K/uL (4.1-10.2)
[2016-12-09 06:53] LABS: ALKALINE PHOSPHATASE 103 IU/L (3-129); ANION GAP 7 MEQ/L (2-14); CHLORIDE 102 MEQ/L (99-109); GFR ESTIMATE (CALCULATED) > 59 mL/min/; GLUCOSE 82 mg/dL (70-99); SAMPLE HEMOLYSIS CHECK 0; SAMPLE ICTERIC CHECK 0; SAMPLE LIPEMIA CHECK 0; SODIUM 130 MEQ/L (136-147); TOTAL BILIRUBIN 0.5 MG/DL (0.0-1.0); UREA NITROGEN (BUN) 10 mg/dL (9-23)
[2016-12-09 06:56] LABS: POTASSIUM 3.4 MEQ/L (3.7-5.4)
[2016-12-09 07:13] VITALS: BP 163/93
[2016-12-09 11:45] VITALS: BP 134/84
[2016-12-09 14:37] LABS: CHLORIDE 104 mEq/L (99-109); POTASSIUM 3.9 mEq/L (3.7-5.4); SODIUM 131 mEq/L (136-147)
[2016-12-09 14:40] LABS: ANION GAP 8 MEQ/L (2-14)
[2016-12-09 14:42] LABS: GFR ESTIMATE (CALCULATED) > 59 mL/min/
[2016-12-09 14:43] LABS: UREA NITROGEN (BUN) 9 mg/dL (9-23)
[2016-12-09 14:46] LABS: GLUCOSE 125 mg/dL (70-99)
[2016-12-09 16:34] VITALS: BP 129/82
[2016-12-09 19:20] VITALS: BP 130/76
[2016-12-10] VITALS (7 sets, daily range): BP systolic 122–148; BP diastolic 74–96
[2016-12-10 06:03] LABS: EOSINOPHIL (%) 0 % (0-5); HEMATOCRIT 30.7 % (36.0-46.0); IMMATURE GRANULOCYTE (%) 1.2 % (0.0-0.7); IMMATURE GRANULOCYTE COUNT 0.2 K/uL; INSTRUMENT ABS NEUTROPHIL CT 11.6 K/uL; MCH 26.5 PG (29.0-34.0); MCHC 32.9 G/DL (30.0-36.0); MCV 80.6 FL (83-99); MEAN PLAT.VOLUME 9.4 uM^3 (9.5-12.4); MONOCYTE COUNT 0.6 K/uL (0-0.8); NEUTROPHIL (%) 81.1 % (45-76); NEUTROPHIL COUNT 11.6 K/uL (1.8-6.4); PLATELET COUNT 488 K/uL (156-360); RBC DIS.WIDTH-CV 18.5 % (11.8-14.6); RBC DIS.WIDTH-SD 53.3 % (39-53); RED BLOOD COUNT 3.81 M/uL (3.80-5.20); WHITE BLOOD COUNT 14.3 K/uL (4.1-10.2)
[2016-12-10 06:39] LABS: CHLORIDE 105 mEq/L (99-109); POTASSIUM 4.2 mEq/L (3.7-5.4); SODIUM 132 mEq/L (136-147)
[2016-12-10 06:42] LABS: GLUCOSE 108 mg/dL (70-99)
[2016-12-10 06:43] LABS: ANION GAP 9 MEQ/L (2-14)
[2016-12-10 06:44] LABS: TOTAL BILIRUBIN 0.5 mg/dL (0.0-1.0)
[2016-12-10 06:45] LABS: ALKALINE PHOSPHATASE 94 IU/L (3-129); GFR ESTIMATE (CALCULATED) > 59 mL/min/
[2016-12-10 06:46] LABS: UREA NITROGEN (BUN) 11 mg/dL (9-23)
[2016-12-11 03:16] VITALS: BP 139/92
[2016-12-11 07:10] VITALS: BP 140/82
[2016-12-11 11:23] VITALS: BP 144/82
[2016-12-11 16:13] VITALS: BP 129/68
[2016-12-11 23:08] VITALS: BP 140/85
[2016-12-12 07:38] VITALS: BP 139/85
[2016-12-12 16:06] VITALS: BP 120/68
[2016-12-12 23:03] VITALS: BP 135/84
[2016-12-13 07:05] VITALS: BP 132/79
[2016-12-13] MEDS ORDERED: PANTOPRAZOLE SO40 MG PO (10:29)
[2016-12-13] MEDS ORDERED: COLACE100 MG PO (10:29)
[2016-12-13] MEDS ORDERED: FOLIC ACID1 MG PO (10:30)
[2016-12-13] MEDS ORDERED: PREDNISONE10 MG PO (10:32)
[2016-12-13 11:12] LABS: HEMATOCRIT 32.4 % (36.0-46.0); MCH 27.1 PG (29.0-34.0); MEAN PLAT.VOLUME 8.7 uM^3 (9.5-12.4); PLATELET COUNT 584 K/uL (156-360); RBC DIS.WIDTH-CV 18.5 % (11.8-14.6); RBC DIS.WIDTH-SD 54.9 % (39-53); RED BLOOD COUNT 3.95 M/uL (3.80-5.20); WHITE BLOOD COUNT 20.8 K/uL (4.1-10.2)
[2016-12-13 11:26] LABS: ANION GAP 8 MEQ/L (2-14); CHLORIDE 99 MEQ/L (99-109); GFR ESTIMATE (CALCULATED) > 59 mL/min/; GLUCOSE 129 mg/dL (70-99); POTASSIUM 3.8 MEQ/L (3.7-5.4); SAMPLE HEMOLYSIS CHECK 0; SAMPLE ICTERIC CHECK 0; SAMPLE LIPEMIA CHECK 0; SODIUM 131 MEQ/L (136-147); UREA NITROGEN (BUN) 7 mg/dL (9-23)
== END 2016-12-13 14:08 | disposition home or self-care (01) | DRG 871 ==
LOC: EME 20:01 → EDOF 12-04 00:15 → 5WEST 12-04 01:24 → 4EAST 12-04 01:49 → 5WEST 12-04 01:49 → 2EAST 12-04 02:35 → 4EAST 12-04 22:37 → 2EASTP 12-10 22:20
PROVIDERS: Emergency Medicine; Hospitalist; Internal Medicine; Internal Medicine Infectious Disease
PROC: 30233N1 Transfusion of Nonautologous Red Blood Cells into Peripheral Vein, Percutaneous Approach (ICD-10-PCS; principal; 2016-12-06)
DX: A41.9 Sepsis, unspecified organism (principal); J90 Pleural effusion, not elsewhere classified; J18.9 Pneumonia, unspecified organism; I31.9 Disease of pericardium, unspecified; I27.2 Other secondary pulmonary hypertension; E87.1 Hypo-osmolality and hyponatremia; Z87.01 Personal history of pneumonia (recurrent); D50.9 Iron deficiency anemia, unspecified; R07.89 Other chest pain; M06.1 Adult-onset Still's disease; G89.29 Other chronic pain; Z79.891 Long term (current) use of opiate analgesic; I77.6 Arteritis, unspecified; D47.3 Essential (hemorrhagic) thrombocythemia; R53.1 Weakness; M25.50 Pain in unspecified joint; K76.0 Fatty (change of) liver, not elsewhere classified; R59.1 Generalized enlarged lymph nodes; R94.31 Abnormal electrocardiogram [ECG] [EKG]; D63.8 Anemia in other chronic diseases classified elsewhere; K59.00 Constipation, unspecified; R00.0 Tachycardia, unspecified; M35.9 Systemic involvement of connective tissue, unspecified; M34.9 Systemic sclerosis, unspecified
CPT/HCPCS: 71020; 71250; 71275; 74176; 80048; 80048 91; 80053; 80076; 81003; 82272; 82550; 82553; 82607; 82728; 82746; 83540; 83605; 83615; 83735; 84145 90; 84466; 84484; 85014; 85018; 85025; 85027; 85045; 85651; 86038; 86140; 86235; 86430; 86900; 86901; 86920; 87040; 87070; 87205; 87449; 87493; 87502; 87641; 93005; 94799; 99202; 99281; 99285; J0456; J0692; J1170; J1200; J1756; J1885; J1956; J2270; J2405; J2920; J3480; J7030; J7050; P9016

== ENCOUNTER → 2016-12-27 | Outpatient (CLI) | payer OTHER ==
[~2016-12-27] MED LIST changes: +ASPIRIN325 MG PO; +Tears Naturale II,Ar BOTH EYES
== END | disposition home or self-care (01) ==
LOC: RAD 12:47
DX: R91.8 Other nonspecific abnormal finding of lung field (principal); Z87.01 Personal history of pneumonia (recurrent)
CPT/HCPCS: 71260

== ENCOUNTER → 2017-12-09 | Outpatient (CLI) | payer OTHER ==
[~2017-12-09] VITALS: Ht 170.2 cm; Wt 90.7 kg
== END | disposition home or self-care (01) ==
LOC: AMB 12-02 10:00
PROC: 0DJD8ZZ Inspection of Lower Intestinal Tract, Via Natural or Artificial Opening Endoscopic (ICD-10-PCS; principal; 2017-12-09)
DX: Z12.11 Encounter for screening for malignant neoplasm of colon (principal); D64.9 Anemia, unspecified; I27.20 Pulmonary hypertension, unspecified; I31.9 Disease of pericardium, unspecified
CPT/HCPCS: 93005

== ENCOUNTER 2018-03-08 14:53 | Emergency (ER) | payer OTHER ==
[~2018-03-08] VITALS: Ht 170.2 cm; Wt 101.6 kg
[2018-03-08 15:39] LABS: HEMATOCRIT 39.1 % (36.0-46.0); HEMOGLOBIN 12.6 G/DL (11.9-15.5); MCH 27.6 PG (29.0-34.0); MCHC 32.2 G/DL (30.0-36.0); MCV 85.7 FL (83-99); PLATELET COUNT 278 K/uL (156-360); RBC DIS.WIDTH-CV 13.3 % (11.8-14.6); RBC DIS.WIDTH-SD 41.7 % (39-53); RED BLOOD COUNT 4.56 M/uL (3.80-5.20); WHITE BLOOD COUNT 5.3 K/uL (4.1-10.2)
[2018-03-08 15:55] LABS: CHLORIDE 107 mEq/L (99-109); POTASSIUM 4.2 mEq/L (3.7-5.4); SODIUM 140 mEq/L (136-147)
[2018-03-08 15:56] LABS: GLUCOSE 94 mg/dL (70-99)
[2018-03-08 16:00] LABS: GFR ESTIMATE (CALCULATED) > 59 mL/min/
[2018-03-08 16:01] LABS: UREA NITROGEN (BUN) 16 mg/dL (9-23)
[2018-03-08] MEDS ORDERED: BENADRYL25 MG PO (17:42)
[2018-03-08] MEDS ORDERED: IBU800 MG PO (17:42)
[2018-03-08] MEDS ORDERED: REGLAN10 MG PO (17:42)
[2018-03-08 18:20] VITALS: BP 151/85
== END 2018-03-08 18:22 | disposition home or self-care (01) ==
LOC: EME 14:53
DX: G43.909 Migraine, unspecified, not intractable, without status migrainosus (principal); K64.4 Residual hemorrhoidal skin tags; Z86.718 Personal history of other venous thrombosis and embolism; Z91.041 Radiographic dye allergy status
CPT/HCPCS: 80048; 85027; 86850; 86900; 86901; 99281; 99284; J1885